=== PATIENT | male | born 1940 | race Caucasian/White ===

== ENCOUNTER → 2021-01-03 | Outpatient (CLI) | payer MEDICARE ==
[~2021-01-03] MED LIST: ASPI325T8 PO; ATOR40TA59 PO; IOHEXOL 180 MG/ML 10 ML VIAL. ONE; METO25TA4 PO; MULT-245 PO; TAMS0.4C97 PO; methylPREDNISolone ACETATE 40 MG/ML VIAL. ONE; methylPREDNISolone ACETATE 80 MG/ML VIAL. ONE
--- NOTE | 2021-01-03 15:49 | PDOC1 ---
INITIAL PAIN CONSULT DATE OF SERVICE: DOS: DATE: 01/03/21 TIME: 15:46 CHIEF COMPLAINT: Chief Complaint: Low back and right lower extremity pain HISTORY OF PRESENT ILLNESS: 80-year-old male presents history of pain low back right lower extremity status post increased activity at home on 12/18/2020 patient was moving a lot of compost manually and then was cutting the lawn the next day walking had significant pain in the low back and right lower extremity the point where he was presented to the emergency department at his local hospital I was given some IV medications and the pain decreased to moderate extent. Patient reports the pain now is in the low back right lower extremity posterior gluteus lateral thigh anterior thigh medial thigh on the right to the right lower leg with some severe hypersensitivity in the anterior aspect of the right thigh with significant pain with light touch and wind patterns. Patient reports pain now constant change during the day worse with walking standing better with sitting or laying down with numbness radiating pain in the right leg wakes him from sleep least one or 2 times a night does not affect any urinary or bowel incontinence patient reports it does affect his ability to walk however it is very significantly fatigued with walking with the right leg but not the left. Patient describes as aching also numbness radiation in the right lower extremity patient has not had a formal this point stretching on his own at home patient taking hydrocodone also prednisone which he had finished both of which helped and he still taking hydrocodone. Patient rates his disability rating 0-10 10 being worst is a 7 with family responsibilities recreation social activity 5 zero sexual behavior self- care life support activities. Patient had a CT scan of the lumbar spine showing L4-5 severe disc height loss with disc bulge and facet hypertrophy causing severe spinal canal and neuroforaminal stenosis L5-S1 shows severe disc height loss with disc bulge and facet hypertrophy causing severe right and moderate left neuroforaminal stenosis and effacement of the subarticular recesses. PAST MEDICAL HISTORY: PMH: Hypertension, arthritis, aortic stenosis, hyperlipidemia, prostate cancer PREVIOUS SURGERIES: Past Surgical Hx: Aortic valve replacement 2017, tumor excision right kidney, tonsillectomy CURRENT MEDICATIONS: Current Meds: Active Scripts Medications Dose Route/Sig Max Daily Dose Days Date Category Multi Vitamin Daily (Multivitamin) 1 Each Tablet 1 Tab PO DAILY 30 01/03/21 Reported Aspirin 325 Mg Tablet 1 Tab PO DAILY 01/03/21 Reported Metoprolol Tartrate 25 Mg Tablet 1 Tab PO BID 01/03/21 Reported Flomax (Tamsulosin Hcl) 0.4 Mg Cap.er.24h 1 Cap PO DAILY 01/03/21 Reported Atorvastatin Calcium 40 Mg Tablet 1 Tab PO DAILY 01/03/21 Reported ALLERGIES; Allergies: Coded Allergies: No Known Drug Allergies (Unverified , 01/03/21) FAMILY HISTORY: Family Hx: Brain cancer patient's sister, colon cancer patient's brother SOCIAL HISTORY: Social Hx: Patient drinks alcohol about one drink daily does not smoke says any illegal illicit recreational drugs is lives with his spouse lives in [facility], and is currently retired. REVIEW OF SYSTEMS: ROS: Positive for those items mentioned in history of present illness, all systems are reviewed, otherwise negative ,and are complete full and well-documented on patient's chart. PHYSICAL EXAM: VS: Blood pressure is 132/81 pulse 69 respiration 16 temperature 98.6 F height 5 ft 8 in weight is 161 lbs PE: PHYSICAL EXAMINATION: GENERAL: The patient is awake, alert, oriented, appropriate, very pleasant in demeanor, patient [place] by his . HEENT: Shows normocephalic, atraumatic. Extraocular movements are intact and symmetrical. Oral cavity: Mucous membranes moist and pink. NECK: Shows anterior throat supple without palpable lymphadenopathy noted. Swallow reflex symmetrical. CHEST: Shows normal on inspection. Breath sounds are clear bilaterally, no rales rhonchi or wheezes auscultated. HEART: Shows S1, S2 clear. No murmurs auscultated. ABDOMEN: Soft, nontender, nondistended. No palpable organomegaly is noted. No rebound or guarding demonstrated. BACK: Shows spine grossly in the midline. Normal-appearing cervical lordotic curvature. There is slightly increased thoracic kyphosis, some minor flattening of the lumbar lordotic curvature. Lumbar paraspinous muscles show symmetrical on inspection, on palpation shows some moderate tenderness diffusely throughout the upper, middle and lower distribution of the paraspinous muscles bilaterally and also into the lower thoracic paraspinous musculature, firm and tender, but without specific trigger points, without radiation of pain. The patient has good rotational motion of the lumbar spine, both laterally as well as extension and flexion without significant difficulty. No tenderness over the spinous processes, sacrum or sacroiliac regions. EXTREMITIES: Lower extremities show deep tendon reflexes 2+ in the patellar and tendo calcaneus tendons. Motor exam is 4 on a scale of 5 with right dorsiflexion, extension, quadriceps and hamstring flexion and 5/5 on the left. Peripheral pulses are 1+ posterior tibial. No peripheral edema is noted bilaterally. Lower extremities are warm and dry to touch, equal in color and appearance. Straight leg raise noted to be pot on the right about 40 degrees, left side is []. Gaenslen's and Marcel's maneuvers are negative bilateral as well. The patient is able to stand, stand on his toes that significant difficulty or loss of balance, walks with a slight favoring gait does appear to favor the right lower extremity slightly but not use any assistive devices to ambulate. SKIN: Shows warm and dry, good turgor. No edema. No sores, rashes or bruising throughout. IMPRESSION: Impression: 80-year-old male with 1 month history low back right lower extremity pain in a radicular fashion CT scan lumbar spine as noted Arthritis Hypertension History of prostate cancer Plan: Options were discussed with patient patient spouse who accompanied him his visit today including conservative medical management is continued physical therapies interventional techniques. Patient like to pursue interventional techniques. We discussed a lumbar epidural steroid injections description as w ell as anatomical models to describe the procedure. Risks were discussed including but not limited to: Bleeding, infection, possibility of epidural hematoma and subsequent neurological compromise, dural puncture, headaches, spinal cord and/or nerve damage, side effects of steroid medication, and poor results regarding pain control. Patient understands and wished to proceed. Patient return to clinic in approximately 2 weeks for follow-up, was counseled as to return appointment activity level and side effects to be aware of. Procedure is lumbar epidural steroid injection under local anesthetic using sterile prep and drape at the L4 5 level using C-arm fluoroscopic guidance in both AP and lateral views medications injected is 120 mg Depo-Medrol +10mL preservative-free normal saline and 2 mL contrast- condition at discharge is stable patient tolerated procedure well had no complications. CAROL ARAGON MD Jan 03, 2021 15:49
--- NOTE | 2021-01-03 15:50 | PDOC4 ---
Procedure Note: ICD 10 Code: ICD 10 Code: M 54.16 M 51.36 M 48.07 Procedure Note: Patient was consented for lumbar epidural steroid injection. Risks were discussed including but not limited to: Bleeding, infection, possibility of epidural hematoma and subsequent neurological compromise, dural puncture, headaches, spinal cord and/or nerve damage, side effects of steroid medication, and poor results regarding pain control. Patient understands and wished to proceed. Procedure is lumbar epidural steroid injection under local anesthetic using sterile prep and drape at the L4-5 level using C-arm fluoroscopic guidance in both AP and lateral views medications injected is 120 mg Depo-Medrol +10mL pres ervative-free normal saline and 2 mL contrast- condition at discharge is stable patient tolerated procedure well had no complications. CAROL ARAGON MD Jan 03, 2021 15:50
== END | disposition home or self-care (01) ==
LOC: PNCL 13:54
PROVIDERS: ATTEND Anesthesiology
DX: M54.5 Low back pain (principal); M79.604 Pain in right leg; M51.36 Other intervertebral disc degeneration, lumbar region; M48.07 Spinal stenosis, lumbosacral region; I10 Essential (primary) hypertension; M19.90 Unspecified osteoarthritis, unspecified site; Z85.46 Personal history of malignant neoplasm of prostate; Z79.82 Long term (current) use of aspirin; Z79.899 Other long term (current) drug therapy; Z98.890 Other specified postprocedural states
CPT/HCPCS: 62323; J1030; J1040; Q9965

== ENCOUNTER → 2021-01-17 | Outpatient (CLI) | payer MEDICARE ==
[~2021-01-17] MED LIST changes: -IOHEXOL 180 MG/ML 10 ML VIAL. ONE; -methylPREDNISolone ACETATE 40 MG/ML VIAL. ONE; -methylPREDNISolone ACETATE 80 MG/ML VIAL. ONE
--- NOTE | 2021-01-17 11:58 | PDOC ---
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 Patient reports about 60% improvement in the low back and right lower extremity patient reports the leg is doing much better still has some tingling in the leg and some aching in the back but is very minimal patient reports is 4-5 on a scale of 10 is average 6 at its worst over the past week and 3-4 at its least and is a 4 today. Patient describes as aching and dull tingling can be constant but much less severe than it was. Patient is been sleeping well at night been doing his daily activities doing household activities walking doing work activities travel with greater ease and comfort and again sleeping much better. Patient reports no new bowel or bladder incontinence no motor or sensory deficits. Physical Exam: VS: Blood pressure is 122/76 pulse 57 respirations 18 temperature 98.1 F weight is 159 pounds PE: PHYSICAL EXAMINATION: GENERAL: The patient is awake, alert, oriented, appropriate, very pleasant in demeanor, patient accompanied by his spouse. HEENT: Shows normocephalic, atraumatic. Extraocular movements are intact and symmetrical. Oral cavity: Mucous membranes moist and pink. NECK: Shows anterior throat supple without palpable lymphadenopathy noted. Swallow reflex symmetrical. CHEST: Shows normal on inspection. Breath sounds are clear bilaterally. HEART: Shows S1, S2 clear. No murmurs auscultated. ABDOMEN: Soft, nontender, nondistended. No palpable organomegaly is noted. BACK: Shows spine grossly in the midline. Normal-appearing cervical lordotic curvature. There is slightly increased thoracic kyphosis, some minor flattening of the lumbar lordotic curvature. Lumbar paraspinous muscles show symmetrical on inspection, on palpation shows some moderate tenderness diffusely throughout the upper, middle and lower distribution of the paraspinous muscles, but without specific trigger points, without radiation of pain. The patient has good rotational motion of the lumbar spine, both laterally as well as extension and flexion without significant difficulty. EXTREMITIES: Lower extremities show deep tendon reflexes 2+ in the patellar and tendo calcaneus tendons. Motor exam is 4 on a scale of 5 with right dorsiflexion, extension, quadriceps and hamstring flexion and 5/5 on the left. Peripheral pulses are 1+ posterior tibial. No peripheral edema is noted bilaterally. Lower extremities are warm and dry to touch, equal in color and appearance. SKIN: Shows warm and dry, good turgor. No edema. No sores, rashes or bruising throughout. Procedure: Procedure: Options were discussed with the patient patient spouse who accompanied him his visit today. We discussed repeat epidural steroid injection as well as conservative measures and exercise. Patient would like to forego any further injections at this time. We will prescribe Medrol Dosepak as well patient was given instructions well side effects to be aware of with the medication. Patient continue with stretching strength exercises walking and exercise and call back on an as-needed basis at this time for additional lumbar epidural steroid injection if necessary. Medication Injected: Med Injected: None Condition at Discharge: Condition at Discharge: Condition at discharge is stable. CAROL ARAGON MD Jan 17, 2021 11:58
== END ==
LOC: PNCL 11:06
PROVIDERS: ATTEND Anesthesiology
DX: M51.16 Intervertebral disc disorders with radiculopathy, lumbar region (principal); M48.061 Spinal stenosis, lumbar region without neurogenic claudication
CPT/HCPCS: G0463